=== PATIENT | female | born 1960 ===

== ENCOUNTER 2018-06-15 08:50 | Outpatient (CLI) | payer OTHER | END 2018-06-15 08:51 | disposition home or self-care (01) | LOC: C.LAB 08:50 | DX: I10 Essential (primary) hypertension (principal) ==

== ENCOUNTER 2018-06-18 11:25 | Outpatient (CLI) | payer OTHER | END 2018-06-18 11:26 | disposition home or self-care (01) | LOC: C.MRIC 11:25 | DX: S93.492D Sprain of other ligament of left ankle, subsequent encounter (principal) ==